=== PATIENT | male | born 1950 | race Caucasian/White ===

== ENCOUNTER 2019-07-09 21:34 | Emergency (ER) | payer BC, MEDICARE ==
--- NOTE | 2019-07-09 23:00 | ER Document Report ---
ED Medical Screen (RME) - General Chief Complaint: Foot Pain Stated Complaint: RIGHT FOOT PAIN Time Seen by Provider: 07/09/19 22:57 Primary Care Provider: BONNY MCCORMICK MD [Primary Care Provider] - Follow up as needed Notes: 69-year-old male presents for right foot swelling. This is ongoing for 3 days. Patient states he was seen at urgent care and told it may have been a "chipped bone." Patient states swelling is getting worse. Denies any history of diabetes. Distal pedal pulses 2+. Area mild swelling noted with mild erythema. No calf tenderness or swelling. I have greeted and performed a rapid initial assessment of this patient. A comprehensive ED assessment and evaluation of the patient, analysis of test results and completion of the medical decision making process with be conducted by additional ED providers. - Related Data Allergies/Adverse Reactions: No Known Allergies Allergy (Verified 12/20/12 02:51) Past Medical History GI Medical History: Reports: Hx Gastroesophageal Reflux Disease - Immunizations Hx Diphtheria, Pertussis, Tetanus Vaccination: Yes Physical Exam - Vital signs Vitals: Temp Pulse Resp BP Pulse Ox 98.1 F 70 16 147/86 H 97 07/09/19 22:16 07/09/19 22:16 07/09/19 22:16 07/09/19 22:16 07/09/19 22:16 Course - Vital Signs Vital signs: Temp Pulse Resp BP Pulse Ox 98.1 F 70 16 147/86 H 97 07/09/19 22:16 07/09/19 22:16 07/09/19 22:16 07/09/19 22:16 07/09/19 22:16 Doctor's Discharge - Discharge Referrals: BONNY MCCORMICK MD [Primary Care Provider] - Follow up as needed
[2019-07-09 23:41] LABS: ABSOLUTE BASOPHILS # (AUTO) 0.1 10^3/uL (0.0-0.2); ABSOLUTE EOSINOPHILS # (AUTO) 0.2 10^3/uL (0.0-0.6); ABSOLUTE LYMPHOCYTES (AUTO) 1.9 10^3/uL (0.5-4.7); ABSOLUTE MONOCYTES (AUTO) 0.6 10^3/uL (0.1-1.4); ABSOLUTE NEUT (AUTO) 3.3 10^3/uL (1.7-8.2); BASOPHILS % (AUTO) 1.1 % (0-2); HEMATOCRIT 39.4 % (37.9-51.0); HEMOGLOBIN 13.8 g/dL (13.5-17.0); LYMPHOCYTES % (AUTO) 30.7 % (13-45); MEAN CORPUSCULAR HEMOGLOBIN 32.9 pg (27.0-33.4); MEAN CORPUSCULAR HGB CONC 35.1 g/dL (32.0-36.0); MEAN CORPUSCULAR VOLUME 94 fl (80-97); MONOCYTES % (AUTO) 10.4 % (3-13); PLATELET COUNT 228 10^3/uL (150-450); RED CELL DISTRIBUTION WIDTH 13.5 % (11.5-14.0); SEGMENTED NEUTROPHILS % (AUTO) 53.8 % (42-78); TOTAL CELLS COUNTED % (AUTO) 100 %; WHITE BLOOD COUNT 6.2 10^3/uL (4.0-10.5)
--- NOTE | 2019-07-09 23:47 | RADIOLOGY REPORT (SQ) ---
EXAM DESCRIPTION: CLINICAL HISTORY: 69 years ,Male pain/swelling COMPARISON: None. TECHNIQUE: RIGHT foot, Three view FINDINGS: There is no evidence to suggest acute navicular fracture. Small bony density adjacent to the talus appears well corticated and may reflect ununited ossicle versus old avulsion injury. At the bases of the second and first metatarsals there is some heterogeneous fragmentation which may be related to degenerative change. Recommend correlation with the location of the patient's pain. No radiopaque foreign object noted. There appears to be some subchondral sclerosis and cyst formation at the first tarsometatarsal junction and along the base of the second metatarsal. No significant ankle effusion noted. IMPRESSION: No navicular fracture is noted Some calcification along the bases of the first and second metatarsals. Question fragmentation related to degenerative change at the first tarsometatarsal junction. Recommend clinical correlation with location of the patient's pain
[2019-07-10 00:05] LABS: ALBUMIN 4.3 g/dL (3.5-5.0); ALKALINE PHOSPHATASE 58 U/L (38-126); ANION GAP 8 (5-19); ASPARTATE AMINO TRANSFERASE 27 U/L (17-59); BILIRUBIN,TOTAL 0.2 mg/dL (0.2-1.3); BLOOD UREA NITROGEN 18 mg/dL (7-20); CALCIUM 9.3 mg/dL (8.4-10.2); CARBON DIOXIDE 30 mmol/L (22-30); CHLORIDE 101 mmol/L (98-107); GLUCOSE 97 mg/dL (75-110); POTASSIUM 4.5 mmol/L (3.6-5.0); TOTAL PROTEIN 7.7 g/dL (6.3-8.2)
[2019-07-10 03:23] VITALS: BP 160/87
[2019-07-10] MEDS ORDERED: HYDROCODONE/ACETAMINOPHEN 5-325 MG (6 TAB/ER DISP) PO PRN (03:58)
--- NOTE | 2019-07-10 04:11 | ER Document Report ---
HPI - HPI Time Seen by Provider: 07/09/19 22:57 Pain Level: 4 Context: Patient is a 69-year-old male that comes emergency department for chief complaint of right foot pain and developing swelling. He states it started hurting a couple of days ago, he was seen in urgent care and told he probably had a fracture in the foot, he states that he did not have an injury and he was uncertain of this, he states he is continue to walk on this but it has started to swell. He states he wonders if there is an allergic reaction or infection in the foot. He denies fever, history of the same. Patient denies history of diabetes, he is not on a blood thinner. He denies history of gout. - REPRODUCTIVE Reproductive: DENIES: : Past Medical History - General Information source: Patient - Social History Smoking Status: Never Smoker Frequency of alcohol use: None Drug Abuse: None Family History: Reviewed & Not Pertinent Patient has suicidal ideation: No Patient has homicidal ideation: No GI Medical History: Reports: Hx Gastroesophageal Reflux Disease - Immunizations Hx Diphtheria, Pertussis, Tetanus Vaccination: Yes Vertical Provider Document - CONSTITUTIONAL General Appearance: WD/WN, No Apparent Distress - HEENT HEENT: Atraumatic, Normal ENT Exam, Normocephalic - NECK Neck: Normal Inspection - RESPIRATORY Respiratory: Breath Sounds Normal, No Respiratory Distress - CARDIOVASCULAR Cardiovascular: Regular Rate, Regular Rhythm - GI/ABDOMEN Gastrointestinal: Abdomen Soft, Abdomen Non-Tender. negative: Abdomen Tender - BACK Back: Normal Inspection - MUSCULOSKELETAL/EXTREMETIES Musculoskeletal/Extremeties: MAEW, FROM, Tender - There is some mild/recent swelling over the dorsal aspect of the right foot near the base of the ankle located over the first through third metatarsals. There is no significant erythema, no severe tenderness, no abnormal heat. Normal capillary refill and sensation, normal dorsalis pedis, range of motion of the ankle intact. Normal leg exam otherwise. - NEURO Level of Consciousness: Awake, Alert, Appropriate Motor/Sensory: No Motor Deficit, No Sensory Deficit - DERM Integumentary: Warm, Dry, No Rash Course - Re-evaluation Re-evalutation: X-ray shows fragmentation at the base of the first and second metatarsals. This is in the same location of patient's pain. He also has some soft tissue swelling on exam. No fever, erythema, wounds, or other concerning findings. Range of motion of the ankle is intact. Does not appear to be a septic joint, does not appear to be infected. I suspect this is fragmentation with bleeding and soft tissue swelling. Patient was placed in a splint after discussion, provided with crutches and some pain medication from here, discussed orthopedic follow-up and return precautions. Patient states appreciation and agreement. Stable at time of discharge. - Vital Signs Vital signs: Temp Pulse Resp BP Pulse Ox 97.9 F 65 16 160/87 H 98 07/10/19 03:20 07/10/19 03:20 07/09/19 22:16 07/10/19 03:20 07/10/19 03:20 - Laboratory Result Diagrams: 07/09/19 23:31 07/09/19 23:31 Laboratory results interpreted by me: 07/09/19 23:31 RBC 4.20 L Procedures - Immobilization Right foot Pre-Proc Neuro Vasc Exam: Normal Immobilizer type: Posterior ankle Performed by: PCT Post-Proc Neuro Vasc Exam: Normal Alignment checked and good: Yes Discharge - Discharge Clinical Impression: Right foot pain, Swelling of right foot Condition: Stable Disposition: HOME, SELF-CARE Additional Instructions: Your x-ray is concerning for fragmentation/fractures at the base of the bones of your foot which connect to your first and second toes. Your exam also indicates soft tissue swelling, probably because of this. I recommend that you wear the splint, take Tylenol for pain, take the provided pain medication if needed, and follow closely with orthopedics for additional management of this. Call the listed referral tomorrow. Return for any concerning symptoms including severe worsening pain or swelling, fever, or any other concerning symptoms. Forms: Special Work Note, Return to Work Referrals: ANTOINETTE SMART DO [ACTIVE STAFF] - Follow up in 3-5 days
== END 2019-07-10 04:43 | disposition home or self-care (01) ==
LOC: ER 21:34
DX: M79.671 Pain in right foot (principal); M79.89 Other specified soft tissue disorders
CPT/HCPCS: 99283; 36415; 85025; 80053; 73630; 29515; A9270